=== PATIENT | female | born 1975 | race Caucasian/White ===

== ENCOUNTER 2017-01-13 15:26 | Emergency (ER) | payer MEDICAID, MEDICARE, OTHER ==
[~2017-01-13] VITALS: Ht 152.4 cm; Wt 73.6 kg
[~2017-01-13 15:26] MED LIST: BENZ1CAP34 PO; BUME0.5T PO; DOXY100T PO; ESTR1TAB PO; GEMF600T PO; LANO0.1212 PO; LEVO100T4 PO; OMEG100037 PO; PRED50 PO; RIVA20 PO; SOTA80TA PO; ZOLO100T PO; ZOLP10TA3 PO
[2017-01-13 15:36] VITALS: BP 120/58; PULSE 93; RESP 16; TEMP 98.2; O2SAT 96
--- NOTE | 2017-01-14 17:03 | EKG ---
Date Performed: 01/13/2017 Time Performed: 15:40:42 PTAGE: 41 years EKG: Sinus rhythm LOW QRS VOLTAGE IN PRECORDIAL LEADS NONSPECIFIC T-WAVE ABNORMALITY BORDERLINE ECG NO PREVIOUS TRACING DOCTOR: Medhat Rosales Interpretating Date/Time 01/14/2017 17:01:12
== END 2017-01-13 18:45 | disposition left against medical advice (07) ==
LOC: NED 15:26
DX: R68.89 Other general symptoms and signs (principal); R94.31 Abnormal electrocardiogram [ECG] [EKG]
CPT/HCPCS: 93005; 99281

== ENCOUNTER 2017-05-25 00:06 | Emergency (ER) | payer OTHER ==
[~2017-05-25] VITALS: Ht 154.9 cm; Wt 65.0 kg
[2017-05-25 00:09] VITALS: BP 129/75; PULSE 93; RESP 16; TEMP 98.4; O2SAT 99
[2017-05-25] MEDS ORDERED: ZOLP10TA3 PO (00:19)
[2017-05-25] MEDS ORDERED: LEVO100T5 PO (00:19)
[2017-05-25] MEDS ORDERED: ESTR1TAB PO (00:19)
[2017-05-25] MEDS ORDERED: BUME0.5T PO (00:19)
[2017-05-25] MEDS ORDERED: CREON12 PO (00:19)
[2017-05-25] MEDS ORDERED: XARE20TA PO (00:19)
[2017-05-25] MEDS ORDERED: GEMF600T PO (00:19)
[2017-05-25] MEDS ORDERED: SODIUM CHLOR 0.9% 1000 ML INJ 1,000 ML IV SCH (00:27)
[2017-05-25] MEDS ORDERED: SODIUM CHLORIDE 0.9% FLUSH 10 ML FLUSH IV FLUSH PRN (00:30)
[2017-05-25] MEDS ORDERED: ONDANSETRON HCL 4 MG/2 ML VIAL IVP ONE (00:30)
[2017-05-25] MEDS ORDERED: MORPHINE SULFATE 4 MG/ML INJ IV PUSH ONE (00:30)
--- NOTE | 2017-05-25 00:40 | PD ---
HPI Chief Complaint: Abdominal Pain Time Seen by Provider: 00:29 Travel History International Travel<30 days: No Contact w/Intl Traveler<30days: No Traveled to known affect area: No History of Present Illness HPI Patient is a 42-year-old female who presents to emergency room with complaint of pancreatitis. Reports that she has been dealing with pancreatitis for the past year, reports that she does see Dr. Duran for this and was last seen on Monday. Patient reports that she has pancreatitis due to high triglycerides. Patient reports that for the past 3 weeks, she has been having epigastric pain with nausea and vomiting. Patient reports that she has lost about 15 pounds that she has not been able to eat or drink, reports that this week has been the worse and she has not been able to tolerate anything by mouth. Patient was told by her head turbine operator to go to the emergency room if symptoms worsened. She was given a script for zofran on Monday - reports that this is not helping with her symptoms at all. Patient with no fevers or chills, no chest pain or shortness of breath, no other complaints. PFSH Past Medical History Arthritis: Yes (RHEUMATOID ARTHRITIS) Asthma: Yes Autoimmune Disease: Yes (LUPUS ) Depression: Yes Cardiovascular Problems: Yes (ABLATION) Diminished Hearing: No Respiratory: No Pancreatitis: Yes Thyroid Disease: Yes (HYPOTHYROID) PNEUMOCCOCAL Vaccine (Year): 2 ?: Not Past Surgical History Cardiac Surgery: Yes (THYOMA REMOVED) Cholecystectomy: Yes Hysterectomy: Yes (PARTIAL) Tonsillectomy: Yes Social History Alcohol Use: Yes (SOCIALLY) Tobacco Use: No Substance Use: Yes (MARIJUANA ) Allergies-Medications (Allergen,Severity, Reaction): Coded Allergies: Levaquin (Verified Allergy, Severe, Anaphylaxis, 05/25/17) Imitrex (Verified Allergy, Unknown, HIVES, SWELLING, 05/25/17) Penicillin (Verified Allergy, Unknown, HIVES, SWELLING, 05/25/17) Reported Meds & Prescriptions Reported Meds & Active Scripts Active Phenergan (Promethazine HCl) 25 Mg Tablet 25 Mg PO Q6H PRN Reported Creon (Amylase/Lipase/Protease) 12,000-38,000-60,000 Units Cap 1 Cap PO DIRECTED Zolpidem (Zolpidem Tartrate) 10 Mg Tab 10 Mg PO HS PRN Xarelto (Rivaroxaban) 20 Mg Tab 20 Mg PO DAILY Levothyroxine (Levothyroxine Sodium) 100 Mcg Tab 100 Mcg PO DAILY Gemfibrozil 600 Mg Tab 600 Mg PO BIDAC Take 30 minutes prior to breakfast and dinner. Estradiol 1 Mg Tab 1 Mg PO DAILY Bumetanide 0.5 Mg Tab 0.5 Mg PO DAILY Review of Systems General / Constitutional: No: Fever Eyes: No: Visual changes HENT: No: Headaches Cardiovascular: No: Chest Pain or Discomfort Respiratory: No: Shortness of Breath Gastrointestinal: Positive: Nausea, Abdominal Pain Genitourinary: No: Dysuria Musculoskeletal: No: Pain Skin: No Rash Neurologic: No: Weakness Psychiatric: No: Depression Endocrine: No: Polydipsia Hematologic/Lymphatic: No: Easy Bruising Physical Exam Narrative GENERAL: mild distress SKIN: Focused skin assessment warm/dry. HEAD: Atraumatic. Normocephalic. EYES: Pupils equal and round. No scleral icterus. No injection or drainage. ENT: No nasal bleeding or discharge. Mucous membranes pink and moist. NECK: Trachea midline. No JVD. CARDIOVASCULAR: Regular rate and rhythm. No murmur appreciated. RESPIRATORY: No accessory muscle use. Clear to auscultation. Breath sounds equal bilaterally. GASTROINTESTINAL: Abdomen soft, tenderness to epigastrium MUSCULOSKELETAL: No obvious deformities. No clubbing. No cyanosis. No edema. NEUROLOGICAL: Awake and alert. No obvious cranial nerve deficits. Motor grossly within normal limits. Normal speech. PSYCHIATRIC: Appropriate mood and affect; insight and judgment normal. Data Data Last Documented VS Vital Signs Date Time Temp Pulse Resp B/P Pulse Ox O2 Delivery O2 Flow Rate FiO2 05/25/17 00:09 98.4 93 16 129/75 99 Room Air Orders Complete Blood Count With Diff (05/25/17 00:27) Comprehensive Metabolic Panel (05/25/17 00:27) Lipase (05/25/17 00:27) Prothrombin Time / Inr (Pt) (05/25/17 00:27) Act Partial Throm Time (Ptt) (05/25/17 00:27) Urinalysis - C+S If Indicated (05/25/17 00:27) Ct Abd/Pel W Iv Contrast(Rout) (05/25/17 00:27) Iv Access Insert/Monitor (05/25/17 00:27) Ecg Monitoring (05/25/17 00:27) NPO (05/25/17 00:27) Sodium Chlor 0.9% 1000 Ml Inj (Ns 1000 M (05/25/17 00:27) Sodium Chloride 0.9% Flush (Ns Flush) (05/25/17 00:30) Electrocardiogram (05/25/17 00:27) Ed Urine Pregnancytest Poc (05/25/17 00:27) Morphine Inj (Morphine Inj) (05/25/17 00:30) Ondansetron Inj (Zofran Inj) (05/25/17 00:30) Diphenhydramine Inj (Benadryl Inj) (05/25/17 01:00) Iohexol 350 Inj (Omnipaque 350 Inj) (05/25/17 01:40) Labs Laboratory Tests Test 05/25/17 05/25/17 00:37 00:46 White Blood Count 7.8 TH/MM3 Red Blood Count 4.73 MIL/MM3 Hemoglobin 13.9 GM/DL Hematocrit 39.5 % Mean Corpuscular Volume 83.6 FL Mean Corpuscular Hemoglobin 29.3 PG Mean Corpuscular Hemoglobin 35.1 % Concent Red Cell Distribution Width 14.4 % Platelet Count 362 TH/MM3 Mean Platelet Volume 9.4 FL Neutrophils (%) (Auto) 42.7 % Lymphocytes (%) (Auto) 48.4 % Monocytes (%) (Auto) 6.6 % Eosinophils (%) (Auto) 1.4 % Basophils (%) (Auto) 0.9 % Neutrophils # (Auto) 3.3 TH/MM3 Lymphocytes # (Auto) 3.8 TH/MM3 Monocytes # (Auto) 0.5 TH/MM3 Eosinophils # (Auto) 0.1 TH/MM3 Basophils # (Auto) 0.1 TH/MM3 CBC Comment DIFF FINAL Differential Comment Prothrombin Time 10.1 SEC Prothromb Time International 0.9 RATIO Ratio Activated Partial 26.6 SEC Thromboplast Time Sodium Level 139 MEQ/L Potassium Level 3.6 MEQ/L Chloride Level 103 MEQ/L Carbon Dioxide Level 26.6 MEQ/L Anion Gap 9 MEQ/L Blood Urea Nitrogen 14 MG/DL Creatinine 0.88 MG/DL Estimat Glomerular Filtration 70 ML/MIN Rate Random Glucose 99 MG/DL Calcium Level 8.6 MG/DL Total Bilirubin 0.5 MG/DL Aspartate Amino Transf 29 U/L (AST/SGOT) Alanine Aminotransferase 36 U/L (ALT/SGPT) Alkaline Phosphatase 91 U/L Total Protein 8.1 GM/DL Albumin 4.1 GM/DL Lipase 183 U/L Urine Color YELLOW Urine Turbidity HAZY Urine pH 5.5 Urine Specific Ethel 1.033 Urine Protein 30 mg/dL Urine Glucose (UA) NEG mg/dL Urine Ketones NEG mg/dL Urine Occult Blood TRACE Urine Nitrite NEG Urine Bilirubin NEG Urine Urobilinogen 2.0 MG/DL Urine Leukocyte Esterase NEG Urine RBC 1 /hpf Urine WBC 3 /hpf Urine Squamous Epithelial 46 /hpf Cells Urine Amorphous Sediment RARE Urine Bacteria RARE /hpf Urine Hyaline Casts 11 /lpf Urine Mucus MANY /lpf Microscopic Urinalysis Comment CULT NOT INDICATED MDM Medical Decision Making Medical Screen Exam Complete: Yes Emergency Medical Condition: Yes Interpretation(s) EKG at 0042: NSR 80bpm, qt/qtc: 417/452, nonspecific st and t wave changes Vital Signs Date Time Temp Pulse Resp B/P Pulse Ox O2 Delivery O2 Flow Rate FiO2 05/25/17 00:09 98.4 93 16 129/75 99 Room Air Laboratory Tests Test 05/25/17 05/25/17 00:37 00:46 White Blood Count 7.8 TH/MM3 (4.0-11.0) Red Blood Count 4.73 MIL/MM3 (4.00-5.30) Hemoglobin 13.9 GM/DL (11.6-15.3) Hematocrit 39.5 % (35.0-46.0) Mean Corpuscular Volume 83.6 FL (80.0-100.0) Mean Corpuscular Hemoglobin 29.3 PG (27.0-34.0) Mean Corpuscular Hemoglobin 35.1 % Concent (32.0-36.0) Red Cell Distribution Width 14.4 % (11.6-17.2) Platelet Count 362 TH/MM3 (150-450) Mean Platelet Volume 9.4 FL (7.0-11.0) Neutrophils (%) (Auto) 42.7 % (16.0-70.0) Lymphocytes (%) (Auto) 48.4 % (9.0-44.0) Monocytes (%) (Auto) 6.6 % (0.0-8.0) Eosinophils (%) (Auto) 1.4 % (0.0-4.0) Basophils (%) (Auto) 0.9 % (0.0-2.0) Neutrophils # (Auto) 3.3 TH/MM3 (1.8-7.7) Lymphocytes # (Auto) 3.8 TH/MM3 (1.0-4.8) Monocytes # (Auto) 0.5 TH/MM3 (0-0.9) Eosinophils # (Auto) 0.1 TH/MM3 (0-0.4) Basophils # (Auto) 0.1 TH/MM3 (0-0.2) CBC Comment DIFF FINAL Differential Comment Prothrombin Time 10.1 SEC (9.8-11.6) Prothromb Time International 0.9 RATIO Ratio Activated Partial 26.6 SEC Thromboplast Time (24.3-30.1) Sodium Level 139 MEQ/L (136-145) Potassium Level 3.6 MEQ/L (3.5-5.1) Chloride Level 103 MEQ/L (98-107) Carbon Dioxide Level 26.6 MEQ/L (21.0-32.0) Anion Gap 9 MEQ/L (5-15) Blood Urea Nitrogen 14 MG/DL (7-18) Creatinine 0.88 MG/DL (0.50-1.00) Estimat Glomerular Filtration 70 ML/MIN (>89) Rate Random Glucose 99 MG/DL (74-106) Calcium Level 8.6 MG/DL (8.5-10.1) Total Bilirubin 0.5 MG/DL (0.2-1.0) Aspartate Amino Transf 29 U/L (15-37) (AST/SGOT) Alanine Aminotransferase 36 U/L (10-53) (ALT/SGPT) Alkaline Phosphatase 91 U/L (45-117) Total Protein 8.1 GM/DL (6.4-8.2) Albumin 4.1 GM/DL (3.4-5.0) Lipase 183 U/L (73-393) Urine Color YELLOW (YELLW/STRAW) Urine Turbidity HAZY (CLEAR) Urine pH 5.5 (5.0-8.5) Urine Specific Ethel 1.033 (1.002-1.035) Urine Protein 30 mg/dL (NEG-TRACE) Urine Glucose (UA) NEG mg/dL (NEG) Urine Ketones NEG mg/dL (NEG) Urine Occult Blood TRACE (NEG) Urine Nitrite NEG (NEG) Urine Bilirubin NEG (NEG) Urine Urobilinogen 2.0 MG/DL (LESS THAN 2.0) Urine Leukocyte Esterase NEG (NEG) Urine RBC 1 /hpf (0-3) Urine WBC 3 /hpf (0-5) Urine Squamous Epithelial 46 /hpf (0-5) Cells Urine Amorphous Sediment RARE Urine Bacteria RARE /hpf (NONE) Urine Hyaline Casts 11 /lpf (RARE) Urine Mucus MANY /lpf (OCC) Microscopic Urinalysis Comment CULT NOT INDICATED Differential Diagnosis Pancreatitis, gastritis, gastroenteritis, electrolyte abnormality Narrative Course Patient is a 42-year-old female who presents to emergency room with complaints of epigastric pain. Patient reports are symptoms similar to her previous episodes. Labs including ct ordered. Will give iv pain medications and IV hydration and antiemetics Vital Signs Date Time Temp Pulse Resp B/P Pulse Ox O2 Delivery O2 Flow Rate FiO2 05/25/17 00:09 98.4 93 16 129/75 99 Room Air Laboratory Tests Test 05/25/17 05/25/17 00:37 00:46 White Blood Count 7.8 TH/MM3 (4.0-11.0) Red Blood Count 4.73 MIL/MM3 (4.00-5.30) Hemoglobin 13.9 GM/DL (11.6-15.3) Hematocrit 39.5 % (35.0-46.0) Mean Corpuscular Volume 83.6 FL (80.0-100.0) Mean Corpuscular Hemoglobin 29.3 PG (27.0-34.0) Mean Corpuscular Hemoglobin 35.1 % Concent (32.0-36.0) Red Cell Distribution Width 14.4 % (11.6-17.2) Platelet Count 362 TH/MM3 (150-450) Mean Platelet Volume 9.4 FL (7.0-11.0) Neutrophils (%) (Auto) 42.7 % (16.0-70.0) Lymphocytes (%) (Auto) 48.4 % (9.0-44.0) Monocytes (%) (Auto) 6.6 % (0.0-8.0) Eosinophils (%) (Auto) 1.4 % (0.0-4.0) Basophils (%) (Auto) 0.9 % (0.0-2.0) Neutrophils # (Auto) 3.3 TH/MM3 (1.8-7.7) Lymphocytes # (Auto) 3.8 TH/MM3 (1.0-4.8) Monocytes # (Auto) 0.5 TH/MM3 (0-0.9) Eosinophils # (Auto) 0.1 TH/MM3 (0-0.4) Basophils # (Auto) 0.1 TH/MM3 (0-0.2) CBC Comment DIFF FINAL Differential Comment Prothrombin Time 10.1 SEC (9.8-11.6) Prothromb Time International 0.9 RATIO Ratio Activated Partial 26.6 SEC Thromboplast Time (24.3-30.1) Sodium Level 139 MEQ/L (136-145) Potassium Level 3.6 MEQ/L (3.5-5.1) Chloride Level 103 MEQ/L (98-107) Carbon Dioxide Level 26.6 MEQ/L (21.0-32.0) Anion Gap 9 MEQ/L (5-15) Blood Urea Nitrogen 14 MG/DL (7-18) Creatinine 0.88 MG/DL (0.50-1.00) Estimat Glomerular Filtration 70 ML/MIN (>89) Rate Random Glucose 99 MG/DL (74-106) Calcium Level 8.6 MG/DL (8.5-10.1) Total Bilirubin 0.5 MG/DL (0.2-1.0) Aspartate Amino Transf 29 U/L (15-37) (AST/SGOT) Alanine Aminotransferase 36 U/L (10-53) (ALT/SGPT) Alkaline Phosphatase 91 U/L (45-117) Total Protein 8.1 GM/DL (6.4-8.2) Albumin 4.1 GM/DL (3.4-5.0) Lipase 183 U/L (73-393) Urine Color YELLOW (YELLW/STRAW) Urine Turbidity HAZY (CLEAR) Urine pH 5.5 (5.0-8.5) Urine Specific Ethel 1.033 (1.002-1.035) Urine Protein 30 mg/dL (NEG-TRACE) Urine Glucose (UA) NEG mg/dL (NEG) Urine Ketones NEG mg/dL (NEG) Urine Occult Blood TRACE (NEG) Urine Nitrite NEG (NEG) Urine Bilirubin NEG (NEG) Urine Urobilinogen 2.0 MG/DL (LESS THAN 2.0) Urine Leukocyte Esterase NEG (NEG) Urine RBC 1 /hpf (0-3) Urine WBC 3 /hpf (0-5) Urine Squamous Epithelial 46 /hpf (0-5) Cells Urine Amorphous Sediment RARE Urine Bacteria RARE /hpf (NONE) Urine Hyaline Casts 11 /lpf (RARE) Urine Mucus MANY /lpf (OCC) Microscopic Urinalysis Comment CULT NOT INDICATED Last Impressions Abdomen/Pelvis CT 05/25/17 0027 Signed Impressions: Service Date/Time: April 01:32 - CONCLUSION: Negative CT abdomen/pelvis with contrast. Taj Soto MD Patient reevaluated, patient feeling much better at this time. CBC: wnl BMP: wnl lipase: 183 ct with no evidence of pancreatitis I reviewed all labs and all studies with patient in detail, she will follow up with her GI doctor as outpatient. She will return to ER if symptoms return. Signs and symptoms of acute abdomen reviewed with patient in detail. Diagnosis Primary Impression: Abdominal pain Qualified Code: R10.13 - Epigastric pain Patient Instructions: General Instructions, Narcotic given in the ED Additional Instructions: Please follow-up with your primary care doctor Please follow up with a head turbine operator as soon as possible Return to emergency room as needed Return to emergency room if symptoms worsen or progress Please bring a copy of your radiology report to your doctor's office for follow up on all findings from today Med/Other Pt SpecificInfo: Prescription(s) given Scripts Promethazine (Phenergan)25 Mg [id number] Mg PO Q6H PRN (NAUSEA OR VOMITING) #20 TAB Ref 0 Prov:Natalie Hernandez DO 05/25/17 Disposition: 01 DISCHARGE HOME Condition: Stable Natalie Hernandez DO May 25, 2017 00:40
[2017-05-25 00:55] LABS: AUTOMATED NEUTROPHIL # 3.3 TH/MM3 (1.8-7.7); BASOPHIL # 0.1 TH/MM3 (0-0.2); BASOPHIL % 0.9 % (0.0-2.0); EOSINOPHIL # 0.1 TH/MM3 (0-0.4); EOSINOPHIL % 1.4 % (0.0-4.0); HEMATOCRIT 39.5 % (35.0-46.0); HEMO FLAGS DIFF FINAL; LYMPH % 48.4 % (9.0-44.0); LYMPHOCYTE # 3.8 TH/MM3 (1.0-4.8); MEAN CELL VOLUME 83.6 FL (80.0-100.0); MEAN CORPUSCULAR HEMOGLOBIN 29.3 PG (27.0-34.0); MEAN CORPUSCULAR HGB CONC 35.1 % (32.0-36.0); MONO % 6.6 % (0.0-8.0); NEUT % 42.7 % (16.0-70.0); PLATELET COUNT 362 TH/MM3 (150-450); RED BLOOD COUNT 4.73 MIL/MM3 (4.00-5.30); RED CELL DISTRIBUTION WIDTH 14.4 % (11.6-17.2); WHITE BLOOD COUNT 7.8 TH/MM3 (4.0-11.0)
[2017-05-25] MEDS ORDERED: diphenhydrAMINE HCL 50 MG/ML VIAL IM ONE (01:00)
[2017-05-25 01:03] LABS: BACTERIA, URINE RARE /hpf; BLOOD, URINE TRACE (NEG); COMMENT (UR) CULT NOT INDICATED; CULTURE IF INDICATED CULT NOT INDICATED; GLUCOSE,URINE NEG (NEG); HYALINE CAST, URINE 11 /lpf (RARE); KETONE, URINE NEG (NEG); MUCUS URINE MANY /lpf (OCC); NITRITE,URINE NEG (NEG); PH, URINE 5.5 (5.0-8.5); SQUAMOUS EPITHELIAL CELL URINE 46 /hpf (0-5); URINE COLOR YELLOW (YELLW/STRAW)
[2017-05-25 01:05] LABS: APTT (PATIENT) 26.6 SEC (24.3-30.1); INTERNATIONAL NORMALIZED RATIO 0.9 RATIO; PROTHROMBIN TIME - PATIENT 10.1 SEC (9.8-11.6)
[2017-05-25 01:12] LABS: ALKALINE PHOSPHATASE 91 U/L (45-117); TOTAL BILIRUBIN ADULT 0.5 MG/DL (0.2-1.0)
[2017-05-25 01:16] LABS: ALT (GPT) 36 U/L (10-53); ANION GAP 9 MEQ/L (5-15); AST (GOT) 29 U/L (15-37); BICARBONATE 26.6 MEQ/L (21.0-32.0); CHLORIDE 103 MEQ/L (98-107); GLOMERULAR FILTRATION RATE 70 ML/MIN (>89); POTASSIUM 3.6 MEQ/L (3.5-5.1); SODIUM (NA) 139 MEQ/L (136-145)
[2017-05-25 01:18] LABS: BLOOD UREA NITROGEN 14 MG/DL (7-18)
[2017-05-25] MEDS ORDERED: IOHEXOL 350 MG/ML 10 ML VIAL (for RAD DIAG) IV ONE (01:40)
--- NOTE | 2017-05-25 02:10 | RADRPT ---
EXAM DATE/TIME: 05/25/2017 01:32 [facility] COMPARISON: No previous studies available for comparison. INDICATIONS : Abdominal pain, nausea and vomiting. IV CONTRAST: 75 cc Omnipaque 350 (iohexol) IV ORAL CONTRAST: No oral contrast ingested. RADIATION DOSE: 11.11 CTDIvol (mGy) MEDICAL HISTORY : Pancreatitis. Cardiovascular disease Asthma. SURGICAL HISTORY : Cholecystectomy. Hysterectomy. ENCOUNTER: Initial ACUITY: 3 months PAIN SCALE: 9/10 LOCATION: All quadrants. TECHNIQUE: Volumetric scanning of the abdomen and pelvis was performed. Using automated exposure control and ad justment of the mA and/or kV according to patient size, radiation dose was kept as low as reasonably achievable to obtain optimal diagnostic quality images. DICOM format image data is available electro nically for review and comparison. FINDINGS: LOWER LUNGS: The visualized lower lungs are clear. LIVER: Homogeneous density without lesion. Mild diffuse fatty change. There is no dilation of the biliary tree. Cholecystectomy. SPLEEN: Normal size without lesion. PANCREAS: Within normal limits. KIDNEYS: Normal in size and shape. There is no mass, stone or hydronephrosis. ADRENAL GLANDS: Within normal limits. VASCULAR: There is no aortic aneurysm. BOWEL/MESENTERY: No dilated loops of small or large bowel. No evidence of free fluid. ABDOMINAL WALL: Within normal limits. RETROPERITONEUM: There is no lymphadenopathy. BLADDER: No wall thickening or mass. REPRODUCTIVE: Within normal limits. INGUINAL: There is no lymphadenopathy or hernia. MUSCULOSKELETAL: Within normal limits for patient age. CONCLUSION: Negative CT abdomen/pelvis with contrast. Taj Soto MD on May 25, 2017 at 2:06 Board Certified Radiologist. This report was verified electronically.
[2017-05-25] MEDS ORDERED: PROM25TA10 PO (02:29)
--- NOTE | 2017-05-25 07:50 | EKG ---
Date Performed: 05/25/2017 Time Performed: 00:42:28 PTAGE: 42 years EKG: Sinus rhythm NONSPECIFIC ST & T-WAVE ABNORMALITY BORDERLINE ECG PREVIOUS TRACING : 01/13/2017 15.40 DOCTOR: Vineet Farias Interpretating Date/Time 05/25/2017 07:47:57
== END 2017-05-25 02:37 | disposition home or self-care (01) ==
LOC: NEPC 00:06
DX: R10.13 Epigastric pain (principal); R11.0 Nausea; M06.9 Rheumatoid arthritis, unspecified; J45.909 Unspecified asthma, uncomplicated; M32.9 Systemic lupus erythematosus, unspecified; F32.9 Major depressive disorder, single episode, unspecified; K85.90 Acute pancreatitis without necrosis or infection, unspecified; E03.9 Hypothyroidism, unspecified; Z79.899 Other long term (current) drug therapy
CPT/HCPCS: 74177; 80053; 81001; 83690; 84703; 85025; 85610; 85730; 93005; 96361; 96372; 96374; 96375; 99285; J1200; J2270; J2405; J7030; Q9967

== ENCOUNTER → 2018-02-14 | Day surgery (SDC) | payer OTHER, MEDICAID ==
[~2018-02-14] MED LIST changes: -BENZ1CAP34 PO; +CREON12 PO; -DOXY100T PO; +LACTATED RINGER'S 1000 ML INJ 1,000 ML ONE; -LANO0.1212 PO; -LEVO100T4 PO; +LEVO100T5 PO; -OMEG100037 PO; +ONABOTULINUMTOXINA INJ 100 UNITS/VIAL ONE; -PRED50 PO; +PROM25TA10 PO; +PROPOFOL 500 MG/50 ML BTL IV ONE; -RIVA20 PO; +SODIUM CHLORIDE 0.9% INJ 10 ML ONE; -SOTA80TA PO; +XARE20TA PO; -ZOLO100T PO
== END | disposition home or self-care (01) ==
LOC: ESDC 11:14
PROVIDERS: ATTEND Internal Medicine Gastroenterology
DX: R10.9 Unspecified abdominal pain (principal); K21.9 Gastro-esophageal reflux disease without esophagitis; K31.84 Gastroparesis
CPT/HCPCS: 00731; 43236; 43239; 88305; 88312; J0585; J3010; J7120